=== PATIENT | female | born 1975 | race Caucasian/White ===

== ENCOUNTER 2020-01-01 11:45 | Emergency (ER) | payer OTHER, SELFPAY ==
--- NOTE | 2020-01-01 11:48 | ED.GENADULT ---
HPI - General Adult General Chief complaint: Upper Respiratory Infection Stated complaint: SORE THROAT/EARACHE Time Seen by Provider: 01/01/20 11:48 Source: patient Mode of arrival: ambulatory Limitations: no limitations History of Present Illness HPI narrative: 44-year-old female patient presents to the [facility] with complaints of sore throat and bilateral ear pain for the past 2 days. Patient states she is also had some sneezing, runny nose and stuffy nose. Denies any coughing, chest pain or shortness of breath. Patient denies taking anything for her symptoms besides Tylenol. Patient states she is supposed to be having eye surgery within the next week or 2 but states that her Covid test has not yet been ordered. Patient states she is an active smoker. Related Data Allergies Allergy/AdvReac Type Severity Reaction Status Date / Time No Known Allergies Allergy Verified 01/01/20 12:10 Review of Systems Review of Systems: Narrative: CONSTITUTIONAL: Denies fever, chills, or sweats. EYES: Denies visual changes, redness, or discharge. ENT: Positive rhinorrhea, congestion, sore throat, and bilateral otalgia. Positive sneezing CARDIOVASCULAR: Denies chest pain, palpitations, or edema. RESPIRATORY: Denies cough or dyspnea. GASTROINTESTINAL: Denies abdominal pain, nausea, vomiting, or diarrhea. GENITOURINARY: Denies dysuria or hematuria. SKIN: Denies rash or itching. MUSCULOSKELETAL: Denies back pain, joint pain, or myalgia. NEUROLOGIC: Denies headache, numbness, or weakness. PSYCHIATRIC: Denies anxiety or depression. [facility] Social History Social History (Updated 01/01/20 @ 12:40 by ZHOU Michael) Smoking status: Current every day smoker Comments At the time of my signature I agree with nursing past medical history, surgical, social, and family history. There is no relevant family history pertinent to the presenting complaint. Exam Narrative: Exam Narrative: GENERAL: Well-appearing, well-nourished, and in no acute distress. HEAD: Normocephalic, atraumatic. No tenderness noted to frontal and maxillary sinuses on palpation EYES: PERRLA and EOMI. ENT: Nares clear, no rhinorrhea or epistaxis. Mucous membranes moist. There is fluid noted behind bilateral TMs but no erythema and no bulging present. Posterior pharynx with no erythema, tonsillectomy, exudates or lesions present. NECK: Supple. No lymphadenopathy CHEST: Clear to auscultation. No respiratory distress. Patient able talk in clear complete sentences. HEART: Regular rate and rhythm. No murmur heard. Normal peripheral pulses. ABDOMEN: Soft, nontender, nondistended, normal active bowel sounds. EXTREMITIES: Normal range of motion. No edema. SKIN: Warm, dry, no rash. NEURO: No focal deficits. Alert and oriented x3. Course Vital Signs Vital signs: Vital Signs Temperature 36.2 C L 01/01/20 12:02 Pulse Rate 87 01/01/20 12:02 Respiratory Rate 16 01/01/20 12:02 Blood Pressure 118/83 01/01/20 12:02 Pulse Oximetry 99 01/01/20 12:02 Temperature 36.2 C L 01/01/20 12:02 Pulse Rate 87 01/01/20 12:02 Respiratory Rate 16 01/01/20 12:02 Blood Pressure 118/83 01/01/20 12:02 Pulse Oximetry 99 01/01/20 12:02 Vital signs reviewed. Medical Decision Making Differential Diagnosis Differential Diagnosis: Differential diagnosis: Viral pharyngitis, pharyngitis, group A strep, infectious mononucleosis, gonococcal pharyngitis, exudative pharyngitis, oral candidiasis. Chronic allergies, postnasal drip, GERD, abscess formation, but glottitis, retropharyngeal abscess formation, or airway obstruction. Discussed with patient that this is most likely is sinus symptoms especially since she is having sneezing along with this as well. Discussed with patient that she does have a little bit of fluid behind bilateral ears which is probably most likely causing the ear pain. Discussed with patient we are going to discharge her home with an antihistamine and nasa
[2020-01-01 12:02] VITALS: BP 118/83; PULSE 87; RESP 16; TEMP 36.2; O2SAT 99
== END 2020-01-01 12:55 | disposition home or self-care (01) ==
PROVIDERS: Emergency Provider Nurse Practitioner Family
DX: H73.893 Other specified disorders of tympanic membrane, bilateral (principal); J02.9 Acute pharyngitis, unspecified; Z20.828 Contact with and (suspected) exposure to other viral communicable diseases; F17.200 Nicotine dependence, unspecified, uncomplicated
CPT/HCPCS: 87081; 87880; 99213; G0463

== ENCOUNTER 2020-01-08 06:51 | Outpatient (NON) | payer OTHER, SELFPAY ==
[2020-01-11 13:38] LABS: SARS-CoV-2 RNA PCR Negative
== END 2020-01-08 06:52 ==
LOC: ANHCOVIDDT 06:57
PROVIDERS: Visit Provider Nurse Practitioner Family
DX: Z20.828 Contact with and (suspected) exposure to other viral communicable diseases (principal); H65.93 Unspecified nonsuppurative otitis media, bilateral; J02.9 Acute pharyngitis, unspecified
CPT/HCPCS: 87635; C9803; U0003

== ENCOUNTER 2021-06-26 00:18 | Day surgery (SDC) | payer OTHER, SELFPAY ==
[2021-06-11 14:48] VITALS: BMI 35.2
[2021-06-26 12:51] VITALS: BP 138/93; PULSE 105; RESP 16; TEMP 36.2; O2SAT 97
[2021-06-26] MEDS: LACTATED RINGERS 1,000 ML 150 ML IV CONT (13:03)
--- NOTE | 2021-06-26 13:15 | P.PNAN_ITS ---
Anes - Initial Pre Proc Eval Procedure: Operation Date: 06/26/21 14:00 Proposed Procedures p Screening Colonoscopy - Hugh Lazaro MD Date/Time: 06/26/21 13:15 Surgeon: Hugh Lazaro MD Pre Op Diagnosis: family hx of malignant neoplasm of digestive organ Patient Data Age: 46 Gender: F Height: 1.52 m Weight: 72.5 kg Last Vital Signs Temp 97.2 F L 06/26/21 12:51 Pulse 105 H 06/26/21 12:51 Resp 16 06/26/21 12:51 BP 138/93 H 06/26/21 12:51 Pulse Ox 97 06/26/21 12:51 Allergies Allergy/AdvReac Type Severity Reaction Status Date / Time No Known Allergies Allergy Verified 06/26/21 12:50 Home Medications Medication Instructions Recorded Confirmed Type cetirizine [Zyrtec] 10 mg PO DAILY #30 tablet 01/01/20 06/26/21 Rx Patient hx anesthesia problems: none Family hx anesthesia problems: none Results Review: All pre-operative results and documents have been reviewed as part of the pre-operative evaluation. [facility] Social History Social History (Updated 01/01/20 @ 12:40 by ZHOU Michael) Smoking packs per day: 0.5 Smoking cigarettes per day: 10.0 Years smoked: 20 Smoking pack-years: 10.00 Smoking status: Current every day smoker Tobacco type: cigarettes Alcohol intake: never Substance use: never Substance use type: does not use Living arrangements: with family Additional living arrangements comments: lives with son Spiritual care concerns: No Anes - Eval Final PreProcedure Day of Procedure 06/26/21 13:15 Patient weight: obese Heart: regular rate and rhythm Lungs: clear to auscultation Airway: Mallampati scale class II Neurological: alert and oriented Last oral intake: >/= 8 hours ASA classification: II Emergent: no Anesthetic plan: proceed Anesthesia type and monitoring: general GIVS and standard monitoring Results Review: All pre-operative results and documents have been reviewed as part of the pre-operative evaluation. Informed Consent: The patient's anesthetic plan and its attendant risks and benefits were discussed with the patient/family/POA. Questions were solicited and answers provided to the satisfaction of the patient/family/POA.
--- NOTE | 2021-06-26 13:59 | PM.HPGS ---
History of Present Illness History of Present Illness Consent: Risks, benefits, and alternatives have been discussed and questions answered. Patient agrees to proceed with procedure. Chief complaint: family hx of malignant neoplasm of digestive organ Narrative: Lona Gold is a 46 year old female here for first colonoscopy, father had colon cancer Review of Systems Constitutional: Constitutional: Denies headache(s) and Denies weakness Eyes: Eyes: Denies blurry vision ENT: Reports Normal hearing present, Denies headache(s) and Denies neck pain Cardiovascular: Cardiovascular: Denies chest pain and Denies dyspnea Respiratory: Respiratory: Denies dyspnea Gastrointestinal: Gastrointestinal: Reports no additional gastrointestinal complaints Genitourinary: Genitourinary: Denies dysuria Musculoskeletal: Musculoskeletal: Denies neck pain Integumentary/Breasts: Skin/Breast: Denies dry skin Neurologic: Reports Normal hearing present, Denies headache(s) and Denies weakness Psychiatric: Psychiatric: Denies anxiety Endocrine: Endocrine: Denies change in body appearance Hematologic/Lymphatic: Hematologic/Lymphatic: Denies easy bleeding Allergic/Immunologic: Allergic/Immunologic: Denies urticaria PMF Past Medical History Medical History (Updated 06/26/21 @ 13:59 by Hugh Lazaro MD) Family history of colon cancer in father Social History Social History (Updated 01/01/20 @ 12:40 by ZHOU Michael) Smoking packs per day: 0.5 Smoking cigarettes per day: 10.0 Years smoked: 20 Smoking pack-years: 10.00 Smoking status: Current every day smoker Tobacco type: cigarettes Alcohol intake: never Substance use: never Substance use type: does not use Living arrangements: with family Additional living arrangements comments: lives with son Spiritual care concerns: No Meds Home Medications and Allergies Home Medications Medication Instructions Recorded Confirmed Type cetirizine [Zyrtec] 10 mg PO DAILY #30 tablet 01/01/20 06/26/21 Rx Allergies Allergy/AdvReac Type Severity Reaction Status Date / Time No Known Allergies Allergy Verified 06/26/21 12:50 Vital Signs Vital Signs - 24 hr 06/26/21 12:51 Temperature 97.2 F L Pulse Rate 105 H Respiratory Rate 16 Blood Pressure 138/93 H Pulse Oximetry 97 Exam Const: General: comfortable and no acute distress HENMT: General nose exam: Normal nares present Eyes: General: appearance normal, both eyes and all related structures Neck: Neck: no JVD Resp: Auscultation: clear to auscultation bilaterally Cardio: Rate: regular rate Rhythm: regular rhythm GI: Inspection: non-distended GI Palp: Yes Soft to palpation Skin: General skin exam: normal color Neuro: General: gait normal Speech: normal speech Extrem: General: normal to inspection Psych: Mental Status: mental status grossly normal Assessment and Plan Assessment and plan (1) Family history of colon cancer in father: Code(s): Z80.0 - Family history of malignant neoplasm of digestive organs Status: Acute Assessment and Plan: colonoscopy
[2021-06-26 14:27] VITALS: BP 107/72; PULSE 80; RESP 27; O2SAT 99
[2021-06-26 14:37] VITALS: BP 117/78; PULSE 77; RESP 30; O2SAT 98
[2021-06-26 14:47] VITALS: BP 121/83; PULSE 76; RESP 15; O2SAT 100
== END 2021-06-26 15:20 | disposition home or self-care (01) ==
PROVIDERS: PCP Internal Medicine; Visit Provider Internal Medicine Gastroenterology
PROC: 0DJD8ZZ Inspection of Lower Intestinal Tract, Via Natural or Artificial Opening Endoscopic (ICD-10-PCS; CPT 45378; principal; 2021-06-26 14:00)
DX: Z12.11 Encounter for screening for malignant neoplasm of colon (principal); D12.0 Benign neoplasm of cecum; D12.5 Benign neoplasm of sigmoid colon; K64.8 Other hemorrhoids; F17.210 Nicotine dependence, cigarettes, uncomplicated; Z80.0 Family history of malignant neoplasm of digestive organs
CPT/HCPCS: 45385; 88305; J2704; J7120

== ENCOUNTER 2021-11-27 09:57 | Outpatient (CLI) | payer OTHER, SELFPAY | END 2021-11-27 09:58 | disposition home or self-care (01) | LOC: ANHAUDIO 09:59 | PROVIDERS: PCP Internal Medicine; Visit Provider Internal Medicine | DX: H90.42 Sensorineural hearing loss, unilateral, left ear, with unrestricted hearing on the contralateral side (principal) | CPT/HCPCS: 92557; 92567 ==

== ENCOUNTER 2023-06-02 13:33 | Outpatient (CLI) | payer MEDICARE, MEDICAID, SELFPAY | END 2023-06-02 13:34 | disposition home or self-care (01) | LOC: ANHAUDIO 13:34 | PROVIDERS: PCP Internal Medicine | DX: H90.42 Sensorineural hearing loss, unilateral, left ear, with unrestricted hearing on the contralateral side (principal) | CPT/HCPCS: 92557; 92567 ==

== ENCOUNTER 2023-06-06 01:00 | Day surgery (SDC) | payer MEDICARE, MEDICAID, SELFPAY ==
[2023-05-28 11:03] VITALS: BMI 29.2
--- NOTE | 2023-05-28 11:10 | PC.NURSE ---
Report to the Outpatient Waiting Room, entrance under the green pavilion located off [facility], at time 0600 on date 06/06/23. Planned Procedure Time: 0730. Time changes happen often and if your time is changed the preop area will call you the afternoon before. - You and your visitor will be asked to self-screen and do not enter if you have any COVID symptoms. - A mask is optional within the hospital at this time. Patients may have clear liquids (water, carbonated beverages, clear teas, apple juice) until 3 hours prior to surgery with a maximum of 20 ounces. - No food from midnight until time of surgery Take the following medications with a SIP of water the morning of surgery: N/A DO NOT STOP ANY OF YOUR OTHER PRESCRIPTION MEDICATIONS PRIOR TO SURGERY ?EXCEPT THE FOLLOWING Medications to discontinue per physician: N/A Date to take last dose: N/A Please no make-up, nail romanian, hairspray, perfume, deodorant, or body powder the day of surgery. No jewelry (including any body piercings) or valuables the day of surgery, leave them at home. Please take a shower or bath the night before, or the morning of, surgery with an antibacterial soap. Wear comfortable, loose fitting clothing. - Jewelry must be removed prior to entering the operating room. Rings and piercings that are not removed may be cut off. - The hospital will not accept responsibility for valuables. - Please leave all valuables, including medications, at home the day of surgery. If you are going home after surgery, a licensed commercial truck driver must drive you home. - NO public transportation without another adult if you receive anesthesia. - We recommend that an adult stay with you for 24 hours following discharge. - We also recommend that you do not drive, make important decision, drink alcoholic beverages, or take any drugs that were not prescribed by your health care provider for at least 24 hours after your discharge time. Follow any additional instructions given to you from your surgeon. If you or anyone in your household have experienced Covid symptoms in the past week, please notify your surgeon or the nurse liaison at the phone number below for possible testing. Telephone instructions given to JUSTIN LOUIS and asked if any additional questions and then verbalized understanding. Patient advised to call surgeon office or pre surgery nurse liaison [phone] if any additional questions.
[2023-06-06] VITALS (8 sets, daily range): BP systolic 90–124; BP diastolic 54–81; PULSE 68–91; RESP 12–20; TEMP 36.5–37.1; O2SAT 94–100
[2023-06-06] MEDS: LACTATED RINGERS 1,000 ML 30 ML IV CONT (06:20)
[2023-06-06] MEDS: KETOROLAC 15 MG/ML VIAL (*BKC) IV PUSH ×2 (06:22→08:50)
[2023-06-06] MEDS: ACETAMINOPHEN 500 MG TABLET 1000 MG PO (06:22)
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
[2023-06-06] MEDS: ceFAZolin 2 GM/D5W 50 ML 2 GM/50 ML BAG IVPB (07:30)
--- NOTE | 2023-06-06 07:31 | WPDHPUPDATE1 ---
History and Physical Update Update Date/Time: 06/06/23 07:31 History and Physical has been reviewed, including an updated exam of the patient. There are NO changes in the patient's condition. Risks, benefits, and alternatives have been discussed and questions answered. Patient agrees to proceed with procedure.
[2023-06-06] MEDS: LIDOCAINE 1% BUFFERED WITH 8.4% SODIUM BICARB 1 ML SYRINGE 10 ML INFILTRATE (08:51)
[2023-06-06] MEDS: BUPivacaine HCL 0.5% 10 ML AMP INFILTRATE (08:52)
--- NOTE | 2023-06-06 09:26 | W.PM.PROC2 ---
Procedure Note - Detailed Date of Procedure 06/06/23 Pre-op Diagnosis Incarcerated periumbilical incisional hernia Post-op Diagnosis Same Procedure Performed Open periumbilical incarcerated incisional hernia repair with Bard Ventralight ST mesh (6.4cm [place]) Defect = 2.5cm Surgeon Da Baptiste MD Ivory Carver [place], [employer]OR Anesthesia General Indications Patient is a 48-year-old female who 3 years ago and a laparoscopic cholecystectomy. In the area the scar in the periumbilical region where she had a laparoscopic port site she has developed an incisional hernia which appears to have some incarcerated fatty tissue within it. She presents now for open repair of the incarcerated periumbilical incisional hernia with mesh. Findings Patient appeared to have a periumbilical port site incisional hernia with incarcerated omentum within the hernia sac. The defect measured approximately 2.5cm in diameter. A piece of Bard Ventralight ST mesh measuring 6.4cm in diameter was used for the repair. Description of Procedure After informed consent was obtained patient brought to the operating room where she was placed supine position and then general LMA anesthesia was administered. The abdomen was then prepped and draped usual sterile fashion. Through the scar in the infraumbilical area and made a similar curved incision with a scalpel and dissected down through the dermis of the skin with a scalpel and then down through the into the subcutaneous tissues down to the hernia sac utilized electrocautery. I then encircled the umbilical stalk bluntly with a Daria clamp and then disconnected the dermis of the overlying hernia umbilicus from the underlying hernia sac. Once this was done I then dissected down to the defect at the fascia and it was 2.5cm in diameter. I then resected the hernia sac at the fascial level and discarded it. The omentum which was completely viable incarcerated within the hernia sac was reduced back into the abdomen without any difficulty. I then placed my index finger into the abdomen through the defect and swept underneath the anterior abdominal wall. There were no other omental bowel adhesions in this area. I then chose a piece of Bard Ventralight ST mesh measuring 6.4cm in diameter in a circular configuration and placed through the defect into the abdomen. With traction on the mesh straps the mesh was approximated to the undersurface of the anterior abdominal wall with the barrier surface the mesh facing the intra-abdominal viscera and the prosthetic surface the mesh in contact with the undersurface anterior abdominal wall. I then circumferentially secured the mesh was transfascial 0 Ethibond sutures. The excess portion of the mesh straps were then cut away. The mesh laid out nicely without any tension. I made sure there was no incarceration of bowel or omentum between the mesh and the undersurface anterior abdominal wall. I then closed the subcutaneous tissues over the fascial defect which was closed with a mesh patch. The everted umbilicus was recreated by placement with 3-0 Vicryl suture to tack down the dermis of the umbilical skin to the deeper fascial structures. Subcutaneous tissues then closed utilizing interrupted 2-0 Vicryl sutures. The skin edges were then approximated utilizing 3-0 Vicryl sutures in the dermal layer and then a 4-0 Monocryl suture in a subcuticular fashion. Incision was then cleaned the skin glue and a pressure dressing was applied. Abdominal binder was placed as well. The patient tolerated the procedure well no complications. All sponges, needles, and instrument counts were correct at the end procedure. EBL was _10__cc. The patient was awakened and taken to recovery in stable and satisfactory condition. Implants Bard Ventralight ST mesh measuring 6.4cm in diameter and a circular configuration. Estimated Blood Loss 10 Drains No Packing No Pathology None sent Complications No immediate complications Co
[2023-06-06] MEDS: fentaNYL CITRATE INJ (*CRX) 100 MCG/2 ML VIAL 25 MCG IV PUSH (10:01)
[2023-06-06] MEDS: oxyCODONE HCL (*CRX) 5 MG TAB IR PO (10:36)
== END 2023-06-06 11:07 | disposition home or self-care (01) ==
PROVIDERS: PCP Internal Medicine; Visit Provider Surgery
PROC: 0WQF0ZZ Repair Abdominal Wall, Open Approach (ICD-10-PCS; CPT 49592; principal; 2023-06-06 07:30)
DX: K43.0 Incisional hernia with obstruction, without gangrene (principal); F17.210 Nicotine dependence, cigarettes, uncomplicated; E66.9 Obesity, unspecified; Z68.30 Body mass index [BMI] 30.0-30.9, adult
CPT/HCPCS: 49592; A9270; C1781; J0690; J1100; J1885; J2250; J2405; J2704; J3010; J7120

== ENCOUNTER 2023-09-09 11:02 | Outpatient (CLI) | payer MEDICARE, MEDICAID, SELFPAY | END 2023-09-09 11:03 | disposition home or self-care (01) | LOC: ANHAUDIO 11:02 | PROVIDERS: PCP Internal Medicine | DX: H90.42 Sensorineural hearing loss, unilateral, left ear, with unrestricted hearing on the contralateral side (principal) | CPT/HCPCS: 92557; 92567 ==

== ENCOUNTER 2024-01-31 07:26 | Outpatient (CLI) | payer MEDICARE, MEDICAID, SELFPAY ==
--- NOTE | ~2024-01-31 | XR_ITS ---
XR_[id number]_CR DATE: 01/31/2024 07:49 INDICATION: Right knee pain for one week TECHNIQUE: AP and lateral views COMPARISON: None FINDINGS: There is a thin curvilinear radiopaque foreign body in the posteromedial soft tissues of th e leg above the knee joint. No fracture, dislocation, joint effusion, periosteal reaction or bone destruction, joint space narrow ing, radiopaque intra-articular loose body or chondrocalcinosis. Knee joint spaces are well preserved . IMPRESSION: Soft tissue foreign body, posteromedial upper right leg Reviewed, dictated and finalized at [facility]. Reviewed, dictated and finalized at [facility]. [facility] [employer]
== END 2024-01-31 07:27 | disposition home or self-care (01) ==
PROVIDERS: PCP Internal Medicine; Visit Provider Pain Medicine Interventional Pain Medicine
DX: M25.561 Pain in right knee (principal)
CPT/HCPCS: 73560

== ENCOUNTER 2024-09-22 07:37 | Outpatient (CLI) | payer MEDICARE, MEDICAID, SELFPAY ==
--- NOTE | ~2024-09-22 | MM_ITS ---
EXAMINATION: MM screening loreta BI w aletha HISTORY: Screening TECHNIQUE: Craniocaudal and mediolateral oblique 3-D tomosynthesis images were obtained and synthetic 2-D images were generated. CAD analysis was submitted and interpreted. COMPARISON: No prior mammogram is available for comparison at this institution. BREAST PARENCHYMAL COMPOSITION: Not dense: There are scattered areas of fibroglandular density. FINDINGS: There is no evidence of suspicious mass, calcification, or architectural distortion to sugg est malignancy in either breast. There has been no suspicious interval change. IMPRESSION: 1. No mammographic evidence of malignancy. 2. Recommend routine screening mammography in one year. BI-RADS Category 1: Negative Reviewed, dictated and finalized at location []
--- OUTSIDE RECORDS SUMMARY | 2024-09-22 07:43 | XMS_ITS | Clinical Summary ---
Author Organization [facility] Address [address] [place] [address] Care Team Providers Care Infant Nanny Name Role Phone Jerry Smyth MD Primary Care Provider [phone] Allergies Active Allergy Reactions Criticality Noted Date Comments Ketorolac Other (See comments) Low 05/02/2022 My body was on fire, it felt like my whole body was burning Medications gabapentin (NEURONTIN) 300 mg capsuleIndicati ons:Neuralgia Take 1 capsule (300 mg total) by mouth 3 (three) times a day 90 capsule 11 12/07/2021 Active HYDROcodone-rodney taminophen (NORCO) 5-325 mg per tabletIndicatio ns:Pain Take 1 tablet by mouth every 6 (six) hours as needed Active gabapentin (NEURONTIN) 100 mg capsule Take by mouth 3 (three) times a day Active cyanocobalamin (Vitamin B-12) 50 mcg tabletIndicatio ns:Prevention of Vitamin B12 Deficiency Take 1 tablet (50 mcg total) by mouth daily Active Active Problems Problem Noted Date Diagnosed Date Right foot pain 01/28/2022 Neuralgia 09/27/2021 Abnormal finding on mammography 09/18/2021 Amenorrhea 09/18/2021 Suppression of menstruation 09/18/2021 Orthopedic hardware present 06/19/2020 Secondary localized osteoarthrosis of ankle and foot 06/19/2020 Fracture of calcaneus 05/20/2016 Encounters Date Type Department Care Team Description 08/02/2024 3:59 PM CDT - 08/02/2024 11:59 PM CDT Hospital Encounter [facility] [address] [place] [address] Family history of disorders of kidney and ureter Discharge Disposition: Discharge to home or self care 07/13/2024 Orders Only [facility] Health Information Management [address] [place] [address] Scanning, Provider from Last 3 Months Immunizations Immunization Administration Dates Next Due Tetanus Toxoid, Unspecified 02/24/2014 Surgical History Surgery Date Site/Laterality Comments ND DELIVERY ONLY Section - x 2 (Added by TW Conv) ND LIG/TRNSXJ FALOPIAN TUBE DEL/ABDML SURG Tubal Ligation During Section - 06/2006 (Added by TW Conv) CHOLECYSTECTOMY FOOT SURGERY CATARACT EXTRACTION, BILATERAL Bilateral FLUORO GUIDED ASPIRATION OR INJECTION INTERMEDIATE JOINT RIGHT 05/30/2022 Right FLUORO GUIDED ASPIRATION OR INJECTION INTERMEDIATE JOINT RIGHT 02/03/2023 Right Medical History Medical History Date Comments Foot pain Chronic pain disorder Hearing loss High cholesterol Family History Medical History Relation Name Comments Cancer Father Depression Father Diabetes Father Hypertension Father Cancer Mother Depression Mother Hypertension Mother Heart attack Other 1 Prior Myocardia l Infarction - mother, maternal grandmother (Added by TW Conv) Hypertension Other 2 Benign [facility] Hypertension - mother (Added by TW Conv) Breast cancer Other 3 Breast Cancer - great-aunt (Added by TW Conv) Relation Name Status Comments Father Alive Mother Alive Other 1 Other 2 Other 3 Social History Tobacco Use Types Packs/Day Years Used Date Smoking Tobacco: Every Day Cigarettes Tobacco Cessation:Ready to Q uit: Not Asked; Counseling Given: Not Answered AUDIT-C Answer Date Recorded Q1: How often do you have a drink containing alc ohol? Monthly or less 07/16/2022 Q2: How many drinks containi ng alcohol do you have on a typical day when you are drinking? 1 or 2 07/16/2022 Q3: How often do you have si x or more drinks on one occasion? Never 07/16/2022 Hunger Vital Sign Answer Date Recorded Within the past 12 months, y ou worried that your food would run out before you got the money to buy more. Never true 07/17/19 Within the past 12 months, t he food you bought just didn't last and you didn't have money to get more. Never true 07/16/2022 Comments No Sex and Gender Information Value Date Recorded Sex Assigned at Not on file Legal Sex Female 6:47 PM MEDIA CONSULTANT Gender Identity Not on file Sexual Orientation Not on file Obstetrics History Last Filed Vital Signs Vital Sign Reading Time Taken Comments Blood Pressure 98/70 02/03/2023 10:39 AM MEDIA CONSULTANT Pulse 90 02/03/2023 10:39 AM MEDIA CONSULTANT Temperature 35.9 C (96.6 F) 02/03/2023 10:39 AM MEDIA CONSULTANT Respiratory Rate 14 02/03/2023 10:39 AM MEDIA CONSULTANT Oxygen Saturation 97% 02/03/2023 10:39 AM MEDIA CONSULTANT Inhaled Oxygen Concentration - - Weight 69.4 kg (153 lb) 02/03/2023 10:39 AM MEDIA CONSULTANT Height 152.4 cm (5') 02/03/2023 10:39 AM MEDIA CONSULTANT Body Mass Index 29.88 02/03/2023 10:39 AM MEDIA CONSULTANT Plan of Treatment Health Maintenance Due Date Last Done Comments Cervical Cancer Screening 1977 Colon Cancer Screening-Colonoscopy 1977 Depression Screening 1977 Hepatitis C Screening 1977 Hepatitis B Screening 1995 Regular Well Visit/Exam 18-64 1995 Pneumococcal vaccine <65 (1 of 2 - PCV) 01/24/1996 DTaP/Tdap/Td Vaccine (1 - Tdap) 02/25/2014 5 Covid-19 Vaccine (3 - season) 2023, 11/30/2020 Breast Cancer Screening-Mammogram 04/29/2024 024 Influenza Vaccine (#1) 2024 Goals Goal Patient Goal Type Associated Problems Recent Progress Patient-Stated? Author CCM Chronic Pain Care Plan Chronic Care Management No change(07/16 10:46 AM CDT) No Cecy Lester, DYLAN Note: Problem: Chronic Pain Goals: 1. Minimize further functional decline 2. Maximize quality of life 3. Control pain Strategies: - Activity/exercise program recommendation - Conservative stepwise pain medicine strategy with multi-disciplinary approach - Recommend healthy lifestyle strategies and compensatory methods as needed Medical Devices Implanted Type Area Lock Up Worker Device Identifier Shelf Expiration Date Model / Serial / Lot Spr Therapeutics System Nerve Stimulator Peripheral Single Lead Sprint Endura [id number] - [id number] Implanted:Qty: 1 on 09/28/2021 by Lisbeth iVllareal MD at [facility] [employer] 12/25/2022 [id number] 1 / / [id number] Procedures Procedure Name Priority Date/Time Associated Diagnosis Comments US KIDNEY COMPLETE Schedule Routine, Read Routine (OP Routine) 08/02/2024 4:26 PM CDT Family history of disorders of kidney and ureter SCAN - OTHER ORDERS 07/13/2024 from Last 3 Months Results * US Kidney Complete (08/02/2024 4:26 PM CDT) Anatomical Region Laterality Modality Kidney N/A Ultrasound 08/02/2024 4:31 PM CDT Impressions 08/02/2024 4:31 PM CDT Normal kidneys. No hydronephrosis. Electronically signed by: Yamileth Birmingham M.D. Narrative 08/02/2024 4:31 PM CDT EXAMINATION: COMPLETE RENAL SONOGRAM HISTORY: 49-year-old woman with a family history of kidney disease; patient's mother. COMPARISON: None FINDINGS: Kidneys: The echogenicity of both kidneys is normal. The kidneys are at the lower limits of normal to slightly small for her size and age. The right kidney measures 8.9 cm in length, and the left, 9.4 cm in length. There is no hydronephrosis in either kidney. There are no renal calculi visualized. Bladder: The urinary bladder is normal Procedure Note Yamileth Birmingham MD - 08/02/2024 EXAMINATION: COMPLETE RENAL SONOGRAM HISTORY: 49-year-old woman with a family history of kidney disease; patient's mother. COMPARISON: None FINDINGS: Kidneys: The echogenicity of both kidneys is normal. The kidneys are at the lower limits of normal to slightly small for her size and age. The right kidney measures 8.9 cm in length, and the left, 9.4 cm in length. There is no hydronephrosis in either kidney. There are no renal calculi visualized. Bladder: The urinary bladder is normal IMPRESSION: Normal kidneys. No hydronephrosis. Electronically signed by: Yamileth Birmingham M.D. Susana Dozier MD [facility] [place] US PROCEDURES Final Result * SCAN - OTHER ORDERS (07/13/2024) Provider Scanning Final Result from Last 3 Months Insurance IDND [facility] MEDICARE ADVANTAGE [facility] MEDICARE ADVANTAGE [facility] Care Teams Infant Nanny Relationship Specialty Start Date End Date Jerry Smyth MD [address] [place] [address] PCP - General Internal Medicine 02/21/21
--- OUTSIDE RECORDS SUMMARY | 2024-09-22 07:43 | XMS_ITS | Encounter Summary ---
Author Organization [facility] Healthcare Address [address] [place] [address] Care Team Providers Care Gas Booster Engineer Name Role Phone Jerry Smyth MD Primary Care Provider [phone] Encounter Details Date Type Department Care Team (Late st Contact Info) Description 12/14/2021 Telephone [facility] [address] [facility] [address] [place] [address] Lisbeth Villareal MD [address] [place] [address] Social History Tobacco Use Types Packs/Day Years Used Date Smoking Tobacco: Every Day Cigarettes AUDIT-C Answer Date Recorded Q1: How often do you have a drink containing alc ohol? Never 12/07/2021 Q2: How many drinks containi ng alcohol do you have on a typical day when you are drinking? 1 or 2 12/07/2021 Q3: How often do you have six or more drinks on one occasion? Never 12/07/2021 Comments No Sex and Gender Information Value Date Recorded Sex Assigned at Not on file Legal Sex Female 6:47 PM RN SOCIAL SERVICES Gender Identity Not on file Sexual Orientation Not on file documented as of this encounter Plan of Treatment Not on file documented as of this encounter Goals Goal Patient Goal Type Associated Problems [...] lifestyle strategies and compensatory methods as needed documented as of this encounter Visit Diagnoses Not on filedocumented in this encounter Care Teams Gas Booster Engineer Relationship Specialty [place] [address] [place] [address] PCP - General Internal Medicine 02/21/21 documented as of this encounter
--- OUTSIDE RECORDS SUMMARY | 2024-09-22 07:43 | XMS_ITS | Continuity of Care Document ---
Author Organization [facility] Address [address] [place] [address] Phone Care Team Providers Care Children'S Attendant Name Role Phone Bong Delgado MD Unavailable Unavailable Procedures Procedure Date Eye Exam & Treatment Eye Exam & Treatment Advance Directives Directive Yes / No Effective Date File Name No Information Encounters Encounter Description Practice Location Reason(s) For Visit Diagnoses Date Provider Providers Copied on Encounter [facility], [address] [place] [address] [address], [place], [id number], tel:[phone] SEC [facility] Professional No Information 8 Danny Woody. [address] [facility] [place], [id number], [place]. tel:[phone] [facility], [address] [place] [address] [address], [place], [id number], tel:[phone] SEC [facility] Professional No Information Jan- 7 Jesus Alberto Fang. [address] [facility], [facility] [address], [place], [address], [place]. tel:[phone] Family History Family Member Type Diagnosis Age At Onset No Information Payers Payer name Insurance type Covered democrat ID Authoriza tion(s) Medicaid [facility] [id number] Social History Type Description Quantity Date Captured Comments Sex Female Smoking Status No Information Chief Complaint And Reason For Visit No Information Reason For Referral Reason For Referral No Information History Of Present Illness Encounter Date Complaint History Of Prese nt Illness No Information Functional Status Date Functional Assessmen t No Information Instructions Date Instruction Additional Infor mation No Information Assessments Type Assessment Date No Information Patient Care Teams Name Effective Dates (start - stop) Status Members No Information
--- OUTSIDE RECORDS SUMMARY | 2024-09-22 07:43 | XMS_ITS | Encounter Summary ---
Author Organization [facility] Address [address] [place] [address] Care Team Providers Care Watchmaker Apprentice Name Role Phone Jerry Smyth MD Primary Care Provider [phone] Danielle River APRN-[facility] Primary Care Provider Reason for Referral * Consultation (Routine) - Closed Specialty Diagnoses / Procedures Referred By Contac t Referred To Contact Cardiology Diagnoses Family history of ischemic heart disease and other diseases of the circulatory system Susana Dozier MD [address] [place] [phone] Phone: tel: fax: [facility] - Cardiology [address] [place] [phone] Phone: tel: fax: Referral ID Status Reason Start Date Expiration Date V isits Requested Visits Authorized [id number] Closed Specialty Services Required 01/26/2024 01/25/2025 1 1 ORMANCE IMPROVEMENT SPECIALIST Encounter Details Date Type Department Care Team (Latest Contact Info) Description 01/26/2024 Transcribe Orders [facility] - Centralized Scheduling [address] [place] [phone] [place] [address] [place] [phone] Family history of ischemic heart disease and other diseases of the circulatory system Social History Tobacco Use Types Packs/Day Years Used Date Smoking Tobacco: Every Day Cigarettes Smokeless Tobacco: Never Alcohol Use Standard Drinks/Week Comments Yes 0 (1 standard drink = 0.6 oz pur e alcohol) Occasionally Comments No Sex and Gender Information Value Date Recorded Sex Assigned at Not on file Legal Sex Female 9:51 AM CDT Gender Identity Not on file Sexual Orientation Not on file documented as of this encounter Plan of Treatment Upcoming Encounters Date Type Department Care Team (Late st Contact Info) Description 05/05/2025 9:45 AM CDT Office Visit [facility] - ENT [address] [facility] [place] [address] Jacoby Villalba MD [address] [facility] [address] [place] [address] 06/08/2025 2:00 PM CDT Office Visit [facility] - Cardiology [address] [facility] [place] [phone] Denisse Shah DO [address] [facility] [address] [place] [address] Scheduled Referrals Name Type Priority Associated Diagnoses Order Schedule AMB REFERRAL TO CARDIOLOGY Outpatient Referral Routine Family history of ischemic heart disease and other diseases of the circulatory system 1 Occurrences starting 01/26/2024 until 01/25/2025 documented as of this encounter Visit Diagnoses Diagnosis Family history of ischemic heart disease and other diseases of the circulatory system- Primary documented in this encounter Care Teams Watchmaker Apprentice Relationship Specialty Start Date End Date Jerry Smyth MD [address] [place] [address] PCP - General 11/13/21 03/11/24 Danielle River APRN-[employer] FINISHER [address] [place] [address] PCP - General 03/12/24 documented as of this encounter
--- OUTSIDE RECORDS SUMMARY | 2024-09-22 07:43 | XMS_ITS | Clinical Summary ---
Author Organization [facility] Address [address] [place] [address] Care Team Providers Care Priming Machine Operator Name Role Phone Danielle River CHEMICAL PRODUCTION TECHNICIAN-LABEL SEWER Primary Care Provider Source Comments [facility] [employer],non-owned Affiliates and Associated Physician Practices is amultiple site organization consisting of ambulatory clinics and hospital sitesin [place], [place], [place] and [place]. This disclosure is being madepursuant to the Care Everywhere program and may not contain all information available regarding this patient. Last updated 17.[facility] [employer] Allergies Active Allergy Reactions Criticality Noted Date Comments Ketorolac Unknown 09/02/2024 ketorolac Medications * Be aware that medications may not be up to date on this document. Alwaysverify current medications with the patient. SUMAtriptan (Imitrex) 50 MG tablet 1 tablet at the onset of migraine; may repeat after 2 hours once in a 24 hour period if needed 9 tablet 2 Active amitriptyline (Elavil) 25 MG tablet Take 1 (one) tablet by mouth every evening 30 tablet 3 2 Active fluticasone propionate (Flonase) 50 MCG/ACT nasal spray [place] 2 (two) sprays into each nostril once daily 48 g 4 2 Active Additional Information Patient not taking.Reported on 09/02/2024 azelastine (Astelin) 0.1 % nasal spray [place] 2 (two) sprays into each nostril 2 times daily 90 mL 11 4 Active fluticasone propionate (Flonase) 50 MCG/ACT nasal spray [place] 1 (one) spray into each nostril once daily 16 g 11 4 Active naproxen (Naprosyn) 500 MG tablet Take 1 (one) tablet by mouth 2 times daily as needed 4 Active ondansetron, disintegrating, (Zofran ODT) 4 MG tablet Take 1 (one) tablet by mouth as directed Active gabapentin (Neurontin) 300 MG capsule Take 1 (one) capsule by mouth at bedtime Active cyclobenzaprine (Flexeril) 10 MG tablet Take 1 (one) tablet by mouth 2 times daily as needed 5 Active HYDROcodone-acet aminophen ([place]) 5-325 MG tablet Take 1 (one) tablet by mouth 2 times daily as needed Active methocarbamol (Robaxin) 500 MG tablet Take 2 (two) tablets by mouth every 8 hours as needed Active atorvastatin (Lipitor) 40 MG tabletIndication s:Mixed hyperlipidemia,F amily history of ischemic heart disease and other diseases of the circulatory system Take 1 (one) tablet by mouth once daily 90 tablet 3 5 06/25/19 26 Active lidocaine (Xylocaine) 5 % ointment Apply to affected area 4 times daily Active Active Problems Problem Noted Date Diagnosed Date Tobacco abuse 06/09/2024 Hyperlipidemia 08/31/2023 Family history of cardiovascular disease 024 Encounters Date Type Department Care Team Description 09/02/2024 9:45 AM CDT Office Visit [facility] - ENT [address] [place] [phone] Jacoby Villalba MD Bilateral impacted cerumen (Primary Dx); Asymmetrical sensorineural hearing loss 09/02/2024 Travel 06/24/2024 Results Follow-Up [facility] - Cardiology [address] [facility], [facility] [address] [place] [phone] Denisse Shah DO from Last 3 Months Immunizations Immunization Administration Dates Next Due TD, HISTORIC VACCINE 02/24/2014 TETANUS 02/24/2014 Family History Medical History Relation Name Comments CAD (Coronary Artery Disease) Father Cancer - Colon Father Diabetes - Type 2 Father CAD (Coronary Artery Disease) Mother Hypertension Mother Relation Name Status Comments Father Mother Social History Tobacco Use Types Packs/Day Years Used Date Smoking Tobacco: Every Day Cigarettes 1 38.6 Started: 1984 Smokeless Tobacco: Never Tobacco Cessation:Ready to Q uit: Not Asked; Counseling Given: Not Answered Alcohol Use Standard Drinks/Week Comments Yes 0 (1 standard drink = 0.6 oz pur e alcohol) Occasionally Comments No Sex and Gender Information Value Date Recorded Sex Assigned at Not on file Legal Sex Female 9:51 AM CDT Gender Identity Not on file Sexual Orientation Not on file Last Filed Vital Signs Vital Sign Reading Time Taken Comments Blood Pressure 117/81 09/02/2024 9:21 AM CDT Pulse 87 09/02/2024 9:21 AM CDT Temperature - - Respiratory Rate 20 06/05/2023 9:42 AM CDT Oxygen Saturation 97% 06/09/2024 12: 35 PM CDT Inhaled Oxygen Concentration - - Weight 65.7 kg (144 lb 12.8 oz) 09/02/2024 9:21 AM CDT Height 152.4 cm (5') 09/02/2024 9:21 AM CDT Body Mass Index 28.28 09/02/2024 9:21 AM CDT Plan of Treatment Upcoming Encounters Date Type Department Care Team (Late st Contact Info) Description 05/05/2025 9:45 AM CDT Office Visit [facility] - ENT [address] [place] [address] Jacoby Villalba MD [address] [facility] [address] [place] [address] 06/08/2025 2:00 PM CDT Office Visit [facility] - Cardiology [address] [facility] [place] [phone] Denisse Shah DO [address] [facility] [address] [place] [address] Health Maintenance Due Date Last Done Comments COLOGUARD (AGES 45-75) - COL ON CA SCREENING 1977 COLON MONITORING 1977 COLONOSCOPY - COLON CA SCREENING 1977 CT COLONOGRAPHY - COLON CA SCREENING 1977 Colorectal Cancer Screening 1977 FIT - COLON CA SCREENING 1977 FLEX SIG - COLON CA SCREENING 1977 MAMMOGRAM 1977 HIV SCREENING 01/24/1992 HEPATITIS C SCREENING 01/19/1995 HEPATITIS B VACCINE (1 of 3 - 19+ 3-dose series) 01/24/1996 PNEUMOCOCCAL VACCINE (1 of 2 - PCV) 01/24/1996 PAP SMEAR 1998 COVID-19 VACCINE (4 - 2023-2 5 season) 2023 08/05/2021, 12/21/2020, 11/30/2020 DEPRESSION SCREENING 02/25/2024 DTAP/TDAP/TD VACCINES (3 - T d or Tdap) 02/25/2024 02/24/2014, 02/24/2014 MEDICARE AWV CALENDAR YEAR 2024 INFLUENZA VACCINE (#1) 2024 ZOSTER VACCINE (1 of 2) 2027 SCREENING FOR DIABETES 06/18/2027 , 06/17/2024 HIB VACCINE Aged Out No longer eligi ble based on patient's age to complete this topic HPV VACCINE Aged Out No longer eligi ble based on patient's age to complete this topic MENINGOCOCCAL (Group B) VACCINE SHARED DECISION-MAKING Aged Out No longer eligible based on patient's age to complete this topic MENINGOCOCCAL GROUPS A/C/Y/W VACCINE Aged Out No longer eligible b ased on patient's age to complete this topic Procedures Procedure Name Priority Date/Time Associated Diagnosis Comments ID REMOVE CERUMEN IMPACTED W INSTR LEFT EAR Routine 09/02/2024 9:40 AM CDT Bilateral impacted cerumen COMPREHENSIVE METABOLIC PANEL 06/17/2024 8:57 AM CDT from Last 3 Months or Most Recently Relevant to Health Maintenance Results * ID REMOVE CERUMEN IMPACTED W INSTR LEFT EAR (09/02/2024 9:40 AM CDT) Narrative Jacoby Villalba MD - 09/02/2024 9:40 AM CDT Jacoby Villalba MD 09/03/2024 9:01 AM Procedure: Cerumen Removal Indication: Cerumen impaction Procedure Note: Verbal consent for the procedure was obtained. Patient was placed under the ear microscope and bilateral ear(s) examined. All cerumen and excess hair was removed using a combination of cerumen loops, suction,and alligator forceps. Findings: After the cerumen was removed, the ear canal was normal and the tympanic membrane on the left had normal landmarks and mobility. The right had normal landmarks and mobility. Abnormalities: None Jacoby Villalba MD PROCEDURE/MINOR SURGICAL ORD ERABLES Final Result * COMPREHENSIVE METABOLIC PANEL (06/17/2024 8:57 AM CDT) Pathologist [facility] Glucose 97 65 - 99 mg/dL [facility] Comment: Fasting reference interval BUN 8 7 - 25 mg/dL [facility] Creatinine 0.73 0.50 - 0.99 mg/dL [facility] eGFR by Cystatin C 102 > OR = 60 mL/min/1. 73m2 [facility] BUN/Creatinine Ratio SEE NOTE: 6 - 22 (calc) [facility] Comment: Not Reported: BUN and Creatinine are within reference range. Sodium 139 135 - 146 mmol/L [facility] Potassium 4.0 3.5 - 5.3 mmol/L [facility] Chloride 103 98 - 110 mmol/L [facility] CO2 28 20 - 32 mmol/L [facility] Calcium 9.4 8.6 - 10.2 mg/dL [facility] Protein Total 6.5 6.1 - 8.1 g/dL [facility] Albumin 4.3 3.6 - 5.1 g/dL [facility] Globulin Total 2.2 1.9 - 3.7 g/dL (calc) [facility] Albumin/Globulin Ratio 2.0 1.0 - 2.5 (calc) [facility] Bilirubin Total 1.2 0.2 - 1.2 mg/dL [facility] Alkaline Phosphatase 108 31 - 125 U/L [facility] AST 14 10 - 35 U/L [facility] ALT 12 6 - 29 U/L [facility] Comment: Test Performed at: [facility] [address] CADE MACHADO MD 06/17/2024 8:57 AM CDT 06/17/2024 8:58 AM CDT Denisse Shah DO LAB - CHEMISTRY ORDERABLES Fin al Result [address] [place] [address] from Last 3 Months or Most Recently Relevant to Health Maintenance Insurance MEDICAID - [facility] MANAGED MEDICARE ADV Care Teams Priming Machine Operator Relationship Specialty Start Date End Date Danielle River APRN-AYANNA [address] [place] [address] PCP - General 03/12/24
--- OUTSIDE RECORDS SUMMARY | 2024-09-22 07:44 | XMS_ITS | Referral Summary ---
Author Organization [facility] Address [address] [place] [address] Care Team Providers Care Employee Health Rn Name Role Phone Jerry Smyth MD Primary Care Provider [phone] Encounters Date Type Department Care Team Description 08/02/2024 3:59 PM CDT - 08/02/2024 11:59 PM CDT Hospital Encounter [facility] [address] [place] [phone] Family history of disorders of kidney and ureter Discharge Disposition: Discharge to home or self care 07/13/[address] [facility] Health Information Management [address] [place] [address] Scanning, Provider from Last 3 Months Allergies Active Allergy Reactions Criticality Noted Date [...] and foot 06/19/2020 Fracture of calcaneus 05/20/2016 Immunizations Immunization Administration Dates Next Due Tetanus Toxoid, Unspecified 02/24/2014 Social History Tobacco Use Types Packs/Day Years [...] on file Legal Sex Female 6:47 PM MANAGER UI Gender Identity Not on file Sexual Orientation Not on file Last Filed Vital Signs Vital Sign Reading Time Taken Comments Blood Pressure 98/70 02/03/2023 10:39 AM MANAGER UI Pulse 90 02/03/2023 10:39 AM MANAGER UI Temperature 35.9 C (96.6 F) 02/03/2023 10:39 AM MANAGER UI Respiratory Rate 14 02/03/2023 10:39 AM MANAGER UI Oxygen Saturation 97% 02/03/2023 10:39 AM MANAGER UI Inhaled Oxygen Concentration - - Weight 69.4 kg (153 lb) 02/03/2023 10:39 AM MANAGER UI Height 152.4 cm (5') 02/03/2023 10:39 AM MANAGER UI Body Mass Index 29.88 02/03/2023 10:39 AM MANAGER UI Plan of Treatment Not on file Goals Goal Patient Goal Type Associated Problems Recent Progress Patient-Stated? Author CCM Chronic Pain Care Plan Chronic Care Management No change(07/16 10:46 AM CDT) No Cecy Lester RN Note: Problem: Chronic Pain Goals: 1. Minimize further functional decline 2. Maximize quality of life 3. Control pain Strategies: - Activity/exercise program recommendation - Conservative stepwise pain medicine strategy with multi-disciplinary approach - Recommend healthy lifestyle strategies and compensatory methods as needed Medical Devices Implanted Type Area Reporting Developer Device Identifier Shelf Expiration Date Model / Serial / Lot Spr [employer] System Nerve Stimulator Peripheral Single Lead Sprint Endura [id number] - [id number] Implanted:Qty: 1 on 09/28/2021 by Lisbeth Villareal MD at [facility] [employer] 12/25/2022 [id number] / / [id number] Procedures Procedure Name Priority Date/Time Associated Diagnosis [...] by: Yamileth Birmingham M.D. Susana Dozier MD IM US PROCEDURES Final Result * SCAN - OTHER ORDERS (07/13/2024) Provider Scanning Final Result from Last [address] [place] [address] [place] [address] [facility] MEDICARE ADVANTAGE [employer] [facility] MEDICARE ADVANTAGE [facility] Care Teams Employee Health Rn Relationship Specialty Start Date End Date Jerry Smyth MD [address] [id number] PCP - General Internal Medicine 02/21/21
== END 2024-09-22 07:38 | disposition home or self-care (01) ==
LOC: ANHIMG 07:41
PROVIDERS: PCP Physician Assistant Medical; Visit Provider Obstetrics & Gynecology
DX: Z12.31 Encounter for screening mammogram for malignant neoplasm of breast (principal)
CPT/HCPCS: 77063; 77067